=== PATIENT | male | born 1980 | race African-American/Black ===

== ENCOUNTER 2022-07-27 20:13 | Emergency (ER) | payer SELFPAY ==
[~2022-07-27] VITALS: Ht 177.8 cm; Wt 79.4 kg
--- NOTE | 2022-07-27 20:27 | NUR ---
Romaine from street, overdose not sure which one "fentanyl or meth" TOLERATING R/A WELL WITH NO RESP DISTRESS. CONNECTED PT TO POX AND MONITOR. SAFETY MEASURES IN PLACE.
[2022-07-27] MEDS ORDERED: NALO4SPR BNOSTRILS (21:38)
[2022-07-27] MEDS ORDERED: ONDANSETRON 4 MG TAB.RAPDIS ONE (21:43)
[2022-07-27] MEDS ORDERED: ONDANSETRON 4 MG TAB.RAPDIS SL ONE (22:00)
[2022-07-27 23:27] VITALS: BP 115/65
--- NOTE | 2022-07-27 23:27 | NUR ---
Patient discharged to home in stable condition. Written and verbal after care instructions given. Patient verbalizes understanding of instruction. DC Escorted by security
== END 2022-07-27 23:27 | disposition home or self-care (01) ==
LOC: ER 20:16
DX: R11.2 Nausea with vomiting, unspecified (principal); T43.651A Poisoning by methamphetamines accidental (unintentional), initial encounter; Y92.410 Unspecified street and highway as the place of occurrence of the external cause
CPT/HCPCS: 99283; Q0162